=== PATIENT | male | born 1970 | race Caucasian/White ===

== ENCOUNTER 2017-01-18 12:41 | Emergency (ER) | payer MEDICARE, OTHER | END 2017-01-18 13:25 | disposition other institution (70) | LOC: ER 12:41 | DX: Z02.89 Encounter for other administrative examinations (principal); K50.90 Crohn's disease, unspecified, without complications; I10 Essential (primary) hypertension; Z79.899 Other long term (current) drug therapy; Z79.891 Long term (current) use of opiate analgesic; Z88.1 Allergy status to other antibiotic agents ==